=== PATIENT | male | born 1950 | race Caucasian/White ===

== ENCOUNTER 2020-01-28 04:57 | Day surgery (SDC) | payer OTHER, MEDICAID ==
[~2020-01-28] VITALS: Ht 185.4 cm; Wt 82.1 kg
[2020-01-28] MEDS ORDERED: ONDANSETRON 2MG/ML, 2ML IVPush ONE ×2 (06:30→10:30)
[2020-01-28] MEDS ORDERED: MORPHINE SULFATE 4 MG/ML, 1ML IVPush PRN ×4 (06:30→14:30)
[2020-01-28] MEDS ORDERED: SODIUM CHLORIDE FLUSH 10ML SYR IVF ONE ×2 (06:30→10:30)
[2020-01-28] MEDS ORDERED: MORPHINE SULFATE 4 MG/ML, 1ML ONE ×2 (06:33→10:37)
[2020-01-28] MEDS ORDERED: ONDANSETRON 2MG/ML, 2ML ONE ×3 (06:33→12:09)
--- NOTE | 2020-01-28 06:43 | NUR ---
Patient comes in with complaints of abdominal pain. States that he was at [facility] and released on Thursday. Patient was told he had "an obstruction and they wouldn't let me eat for 3 days" Patient states that they gave him golytlye at [facility] and was cleared out then. Once he began a liquid diet states that started to cramp. Now pain is 10/10. IV started medicated per APR. VSS.
[2020-01-28 06:54] LABS: ALBUMIN 3.9 g/dL (3.4-5.0); ANION GAP 4 mmol/L (5-15); CALCIUM 9.3 mg/dL (8.5-10.1); CHLORIDE 103 mmol/L (98-107)
[2020-01-28 06:58] LABS: ALANINE AMINOTRANSFERASE 24 U/L (12-78); ALKALINE PHOSPHATASE 71 U/L (45-117); BILIRUBIN,TOTAL 0.7 mg/dL (0.2-1.0); CREATININE 0.95 mg/dL (0.7-1.3); TOTAL PROTEIN 7.8 g/dL (6.4-8.2)
[2020-01-28 07:27] LABS: BASOPHILS % (AUTO) 1 % (0-1); EOSINOPHILS % (AUTO) 4 % (1-7); LYMPHOCYTES % (AUTO) 27 % (22-44); MEAN CORPUSCULAR HEMOGLOBIN 31.5 pg (27.5-34.5); MEAN CORPUSCULAR HGB CONC 35.3 g/dL (33.2-36.2); MEAN PLATELET VOLUME 7.4 fL (7.4-10.4); MONOCYTES % (AUTO) 7 % (2-9); NEUTROPHILS % (AUTO) 61 % (42-75); PLATELET COUNT 326 x10^3/uL (130-400); RED BLOOD COUNT 5.12 x10^6/uL (4.38-5.82); RED CELL DISTRIBUTION WIDTH 12.8 % (9.4-14.8)
[2020-01-28 07:32] LABS: MD NO
--- NOTE | 2020-01-28 07:52 | NUR ---
PT BACK FROM [facility]. NAD NOTED AT THIS TIME. PT LAYING ON SIDE, WHICH HE SAYS IS MORE COMFORTABLE. PT REPORTS PAIN IS LESS WIDESPREAD IN ABDOMEN AT THIS TIME. PT AND PT PLEASANT WITH STAFF. AWAITING IMAGING RESULTS. VSS. SIDE RAILS UP, CALL LIGHT IN REACH.
--- NOTE | 2020-01-28 08:32 | NUR ---
PT REMINDED OF NEED FOR UA. PT GIVEN URINAL AND STATES "MAYBE IN A FEW MINUTES" US AT BEDSIDE. NAD NOTED AT THIS TIME.
--- NOTE | 2020-01-28 08:57 | NUR ---
UA SENT TO LAB. US COMPLETED. AWAITING RESULTS.
[2020-01-28 09:07] LABS: MICROSCOPIC NOT IND
--- NOTE | 2020-01-28 09:32 | NUR ---
PT LAYING ON SIDE, RESPIRATIONS EVEN AND UNLABORED ON RA. PT ABLE TO MOVE INDEPENDENTLY TO FIND POSITION OF COMFORT.
[2020-01-28] MEDS ORDERED: CEFOTETAN PMX 1GM/50ML 50 ML IVPB ONE (10:30)
[2020-01-28] MEDS ORDERED: SODIUM CHLORIDE FLUSH 10ML SYR IVF PRN (10:30)
[2020-01-28] MEDS ORDERED: ONDANSETRON 2MG/ML, 2ML IVPush PRN (10:30)
[2020-01-28] MEDS ORDERED: SODIUM CHLORIDE 0.9% 1,000 ML IV ONE ×2 (10:30)
--- NOTE | 2020-01-28 10:33 | NUR ---
AWAITING ABX FROM PHARMACY.
[2020-01-28] MEDS ORDERED: EPINEPHRINE 1 MG/ML, 1ML ONE (10:43)
[2020-01-28] MEDS ORDERED: BUPIVACAINE/PF 0.25% ONE (10:43)
--- NOTE | 2020-01-28 10:51 | NUR ---
REPORT TO OR.
--- NOTE | 2020-01-28 11:10 | NUR ---
TRANSPORTED WITH IVF INFUSING.
[2020-01-28] MEDS ORDERED: FENTANYL PF 100 MCG/2ML ONE ×2 (11:18→12:25)
[2020-01-28] MEDS ORDERED: MIDAZOLAM 1 MG/ML, 2ML ONE (11:18)
--- NOTE | 2020-01-28 11:18 | NUR ---
BELONGINGS IN TWO BAGS WITH LABELS. BAGS TIED TOGETHER WITH LABEL ON STRINGS ATTACHING BAGS.
[2020-01-28] MEDS ORDERED: KETOROLAC 30 MG/1 ML ONE (11:36)
[2020-01-28] MEDS ORDERED: PHENYLEPHRINE 10 MG/ML ONE (11:36)
[2020-01-28] MEDS ORDERED: DEXAMETHASONE 4 MG/ML, 1ML ONE (11:36)
[2020-01-28] MEDS ORDERED: BUPIVACAINE/PF-EPI 0.25% 1:200K INFIL ONE (11:55)
[2020-01-28] MEDS ORDERED: SUGAMMADEX 200 MG/2 ML IVPush ONE (12:09)
[2020-01-28] MEDS ORDERED: ROCURONIUM 10MG/ML,5ML ONE (12:09)
[2020-01-28] MEDS ORDERED: PROPOFOL 10 MG/ML, 20ML ONE (12:09)
[2020-01-28] MEDS: FENTANYL PF 100 MCG/2ML IV PRN ×2 (12:26→12:31)
[2020-01-28] MEDS ORDERED: HYDROmorphone 2 MG/ML, 1ML ONE (12:28)
[2020-01-28] MEDS ORDERED: LABETALOL 5MG/ML, 20ML IV PRN (12:30)
[2020-01-28] MEDS ORDERED: hydrALAzine 20 MG/ML, 1ML IV PRN (12:30)
[2020-01-28] MEDS ORDERED: METHOCARBAMOL 1,000 MG in DEXTROSE 5% 100 ML IV PRN (12:30)
[2020-01-28] MEDS ORDERED: ACETAMINOPHEN 325 MG TABLET PO PRN (12:30)
[2020-01-28] MEDS ORDERED: OXYcodone 5 MG/5 ML ORAL.SOL UDC PO PRN (12:30)
[2020-01-28] MEDS ORDERED: MEPERIDINE/PF 25MG/0.5ML IVPush PRN (12:30)
[2020-01-28] MEDS: HYDROmorphone 1 MG/ML, 1ML INJ IVPush PRN ×2 (12:30→12:35)
[2020-01-28] MEDS ORDERED: PROMETHAZINE 25 MG/ML, 1ML IVPush PRN (12:30)
[2020-01-28] MEDS ORDERED: ALBUTEROL SULFATE 2.5 MG/3 ML NPPB PRN (12:30)
[2020-01-28] MEDS ORDERED: LORazepam 2 MG/ML, 1ML ONE (12:34)
[2020-01-28] MEDS: LORazepam 2 MG/ML, 1ML IVPush PRN ×2 (12:35→12:45)
[2020-01-28 13:50] VITALS: BP 134/82
[2020-01-28] MEDS ORDERED: KETOROLAC 30 MG/1 ML IV PRN (14:30)
[2020-01-28] MEDS ORDERED: HYDR-3240 PO (14:43)
[2020-01-28 19:15] VITALS: BP 116/72
== END 2020-01-28 23:05 | disposition home or self-care (01) ==
LOC: ED 09:08 → EDIP 10:09 → UNDOADMIN 10:09 → OUT 10:09 → EDSTATUS 10:40 → 4NE 13:51 → EDIP 13:51 → OUT 23:05 → UNDODISIN 23:05
PROVIDERS: ATTEND Emergency Medicine
DX: K80.67 Calculus of gallbladder and bile duct with acute and chronic cholecystitis with obstruction (principal); I69.398 Other sequelae of cerebral infarction; Z20.828 Contact with and (suspected) exposure to other viral communicable diseases; Z79.891 Long term (current) use of opiate analgesic; Z79.899 Other long term (current) drug therapy; Z88.8 Allergy status to other drugs, medicaments and biological substances; Z98.890 Other specified postprocedural states; Z99.81 Dependence on supplemental oxygen
CPT/HCPCS: 36415; 47562; 74022; 76700; 80053; 81003; 83690; 85025; 87635; 88304; 93005; 96374; 96375; 99285; J0171; J1170; J2060; J2250; J2270; J2405; J2704; J3010; G0378; J1100; J1885; J2370

== ENCOUNTER 2020-06-08 09:09 | Outpatient (CLI) | payer MEDICARE, MEDICAID ==
[~2020-06-08 09:09] MED LIST: HYDR-2214 PO
== END 2020-06-08 23:59 | disposition home or self-care (01) ==
LOC: CFH 09:09
PROVIDERS: ATTEND Internal Medicine
DX: M85.88 Other specified disorders of bone density and structure, other site (principal); K90.0 Celiac disease; K26.9 Duodenal ulcer, unspecified as acute or chronic, without hemorrhage or perforation; K31.5 Obstruction of duodenum; R63.4 Abnormal weight loss
CPT/HCPCS: 77080

== ENCOUNTER 2020-07-10 15:23 | Emergency (ER) | payer MEDICARE, MEDICAID ==
[~2020-07-10] VITALS: Ht 182.9 cm; Wt 75.0 kg
[2020-07-10 15:25] VITALS: BP 106/54
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
[2020-07-10 16:50] LABS: MICROSCOPIC NOT IND
[2020-07-10 17:13] LABS: BASOPHILS % (AUTO) 1 % (0-1); EOSINOPHILS % (AUTO) 8 % (1-7); LYMPHOCYTES % (AUTO) 34 % (22-44); MEAN CORPUSCULAR HEMOGLOBIN 31.2 pg (27.5-34.5); MEAN CORPUSCULAR HGB CONC 35.2 g/dL (33.2-36.2); MEAN PLATELET VOLUME 7.3 fL (7.4-10.4); MONOCYTES % (AUTO) 7 % (2-9); NEUTROPHILS % (AUTO) 51 % (42-75); PLATELET COUNT 278 x10^3/uL (130-400); RED CELL DISTRIBUTION WIDTH 13.3 % (9.4-14.8)
[2020-07-10 17:15] LABS: MD NO
[2020-07-10 17:18] LABS: ALANINE AMINOTRANSFERASE 27 U/L (12-78); ALBUMIN 3.7 g/dL (3.4-5.0); ANION GAP 1 mmol/L (5-15); CALCIUM 8.6 mg/dL (8.5-10.1); CHLORIDE 109 mmol/L (98-107); CREATININE 0.84 mg/dL (0.7-1.3)
[2020-07-10 17:20] LABS: ALKALINE PHOSPHATASE 76 U/L (45-117); BILIRUBIN,TOTAL 0.6 mg/dL (0.2-1.0); TOTAL PROTEIN 7.2 g/dL (6.4-8.2)
[2020-07-10] MEDS ORDERED: KETOROLAC 60 MG/2 ML ONE (17:42)
[2020-07-10] MEDS ORDERED: METHOCARBAMOL 750 MG TABLET ONE (17:42)
[2020-07-10] MEDS ORDERED: DIPH,PERTUSS(ACELL),TET VAC/PF 0.5 ML IM-VACC ONE (17:43)
== END 2020-07-10 18:50 | disposition home or self-care (01) ==
LOC: ED 18:30
DX: Z00.00 Encounter for general adult medical examination without abnormal findings (principal); R29.810 Facial weakness; R94.31 Abnormal electrocardiogram [ECG] [EKG]; F17.200 Nicotine dependence, unspecified, uncomplicated
CPT/HCPCS: 36415; 74021; 80053; 81003; 85025; 93005; 99285